=== PATIENT | female | born 1990 | race Caucasian/White ===

== ENCOUNTER 2018-06-10 20:28 | Emergency (ER) | payer MEDICAID, OTHER ==
[2018-06-10 20:47] VITALS: BP 154/99
--- NOTE | 2018-06-10 21:11 | EDM.PDOC ---
ED HPI GENERAL MEDICAL PROBLEM - General Chief Complaint: Lower Extremity Injury/Pain Stated Complaint: LEG PAIN Time Seen by Provider: 06/10/18 20:31 Source of Information: Reports: Patient History Limitations: Reports: No Limitations - History of Present Illness INITIAL COMMENTS - FREE TEXT/NARRATIVE: There is a 27-year-old female. She states that she had an MRI at [facility] that showed a torn ACL as well as a meniscus. She doesn't know whether it's a complete tear of the ACL or which meniscus. She sees Dr. Chapa for this and is supposed to have an appointment on June 20 for him to review the MRI with her. This evening when she got out of bed to go to work her left knee collapsed and she fell to the floor and now she's having increasing pain of the left knee. She comes to the ER for evaluation. She denies any other acute trauma with her fall. left knee Pain Score (Numeric/FACES): 3 - Related Data Allergies Allergy/AdvReac Type Severity Reaction Status Date / Time adhesive Allergy Rash Verified 06/10/18 20:47 ketorolac [From Toradol] Allergy Itching Verified 06/10/18 20:47 glitter Allergy Hives Uncoded 06/10/18 20:47 Home Meds: Home Meds Naproxen [Naprosyn] 500 mg PO Q8H PRN 01/25/17 [History] methylPREDNISolone [Medrol] 0 mg PO ASDIRECTED 06/10/18 [History] Past Medical History - Past Health History Medical/Surgical History: Denies Medical/Surgical History HEENT History: Reports: Impaired Vision, Other (See Below) Other HEENT History: frequent strep throat Cardiovascular History: Reports: None Respiratory History: Reports: Bronchitis, Recurrent, Intubation, Previous, Pneumonia, Recurrent Gastrointestinal History: Reports: GERD, Other (See Below) Other Gastrointestinal History: ENLARGED SPLEEN Genitourinary History: Reports: Other (See Below) 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 Genitourinary History: 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: Musculoskeletal History: Reports: Fracture Neurological History: Reports: Other (See Below) Other Neuro History: slipped disc to lumbar region Psychiatric History: Reports: None Endocrine/Metabolic History: Reports: Diabetes, Gestational, Obesity/BMI 30+ Hematologic History: Reports: Other (See Below) Other Hematologic History: toxic shock syndrome Immunologic History: Reports: None Oncologic (Cancer) History: Reports: None Dermatologic History: Reports: Other (See Below) Other Dermatologic History: HIDRANITIS SUPPERTIVA - Infectious Disease History Infectious Disease History: Reports: Chicken Pox - Past Surgical History Respiratory Surgical History: Reports: Tracheostomy Female Surgical History: Reports: None Social & Family History - Family History Family Medical History: Noncontributory - Tobacco Use Smoking Status *Q: Current Every Day Smoker Years of Tobacco use: 7 Packs/Tins Daily: 0.5 - Caffeine Use Caffeine Use: Reports: Coffee, Energy Drinks, Soda, Tea - Recreational Drug Use Recreational Drug Use: No - Sexual History Sexual History: Reports: Sexually Active - Living Situation & Occupation Living situation: Reports: Single, Other Occupation: Employed Review of Systems - Review of Systems Review Of Systems: See Below Constitutional: Denies: Chills, Fever Eyes: Reports: No Symptoms Ears: Reports: No Symptoms Nose: Reports: No Symptoms Mouth/Throat: Reports: No Symptoms Respiratory: Reports: No Symptoms Cardiovascular: Reports: No Symptoms GI/Abdominal: Reports: No Symptoms Genitourinary: Reports: No Symptoms Musculoskeletal: Reports: Joint Pain, Other (As per history of present illness) Skin: Reports: No Symptoms Neurological: Reports: No Symptoms Psychiatric: Reports: No Symptoms ED EXAM, GENERAL - Physical Exam Exam: See Below Exam Limited By: No Limitations General Appearance: Alert, WD/WN, Mild Distress Eye Exam: Bilateral Eye: Normal Inspection Ears: Normal External Exam Nose: Normal Inspection Throat/Mouth: Normal Inspection, Normal Lips, Normal Voice, No Airway Compromise Head: Normocephalic Neck: Supple Respiratory/Chest: No Respiratory Distress GI/Abdominal: Other (She denies any abdominal tenderness) Back Exam: Normal Inspection, Full Range of Motion Extremities: Normal Inspection, Other (Left knee she has a difficult time getting it to 90 flexion, with it at 90 she does not have a positive anterior drawer sign or posterior drawer sign. Collateral ligaments do not appear to be tender but she is tender on both medial and lateral joint lines slight cannot determine which meniscus might be involved. She has no effusion noted at this time. There is no other lower extremity trauma on the left and she denies any ankle pain foot pain or left hip pain.) Neurological: Alert, Oriented Psychiatric: Normal Affect, Normal Mood Skin Exam: Warm, Dry Course - Vital Signs Last Recorded V/S: Last Vital Signs Temp 97.7 F 06/10/18 20:44 Pulse 87 06/10/18 20:44 Resp 18 06/10/18 20:44 BP 154/99 H 06/10/18 20:44 Pulse Ox 98 06/10/18 20:44 - Orders/Labs/Meds Orders: Active Orders 24 hr Category Date Time Status Communication Order [RC] STAT Care 06/10/18 21:04 Ordered Departure - Departure Time of Disposition: 21:08 Disposition: Home, Self-Care 01 Condition: Good Clinical Impression: Left anterior cruciate ligament tear Qualifiers: Encounter type: initial encounter Qualified Code(s): S83.512A - Sprain of anterior cruciate ligament of left knee, initial encounter Tear of meniscus of left knee Qualifiers: Tear current or old: current Encounter type: initial encounter Meniscus of knee : unspecified Meniscus tear of knee type: other type Qualified Code(s): S83.204A - Other tear of unspecified meniscus, current injury, left knee, initial encounter - Discharge Information *PRESCRIPTION DRUG MONITORING PROGRAM REVIEWED*: Not Applicable *COPY OF PRESCRIPTION DRUG MONITORING REPORT IN PATIENT [place]: Not Applicable Referrals: Dana Keenan NP [Primary Care Provider] - Ede Chapa MD [Physician] - Forms: ED Department Discharge, ED Return to Work/School Form Additional Instructions: Use the crutches until you see Dr. Chapa for evaluation, I will give you off work through the first part of the week so you can call his office to see him sooner so he can evaluate the MRI and determine what needs to be done to your left knee, use ice on and off for the next 48 hours and then begin to use ice and heat alternating but finish with ice, take Aleve or ibuprofen as needed for the soreness and pain, keep it elevated as much as possible, return to the ER if needed - My Orders Last 24 Hours: My Active Orders 06/10/18 21:04 Communication Order [RC] STAT - Assessment/Plan Last 24 Hours: My Active Orders 06/10/18 21:04 Communication Order [RC] STAT
== END 2018-06-10 21:35 | disposition home or self-care (01) ==
LOC: JD.ED 20:28
DX: S83.204A Other tear of unspecified meniscus, current injury, left knee, initial encounter (principal); F17.210 Nicotine dependence, cigarettes, uncomplicated; Z91.09 Other allergy status, other than to drugs and biological substances; Z88.6 Allergy status to analgesic agent; E66.9 Obesity, unspecified; W19.XXXA Unspecified fall, initial encounter
CPT/HCPCS: 99283

== ENCOUNTER 2018-07-05 14:07 | Emergency (ER) | payer MEDICAID ==
[2018-07-05 15:35] VITALS: BP 128/87
[2018-07-05] MEDS ORDERED: LORazepam 2 MG/ML SDV IM ONE (15:59)
--- NOTE | 2018-07-05 15:59 | EDM.PDOCBH ---
ED HPI GENERAL MEDICAL PROBLEM - General Chief Complaint: Behavioral/Psych Stated Complaint: EMOTIONAL MELTDOWN, PANIC ATTACK, MENTAL EVAL Time Seen by Provider: 07/05/18 15:28 Source of Information: Reports: Patient History Limitations: Reports: No Limitations - History of Present Illness INITIAL COMMENTS - FREE TEXT/NARRATIVE: 27-year-old female presents for mental health evaluation. Patient reports she's been having issues with anxiety regarding family issues. She also reports that she has an emotional support dog who ran away today. She is struggling with anxiety today. She reports she has a diagnosis of ADD, ADHD, bipolar disorder, PTSD and insomnia. She's been on multiple medications in the past but does not recall what these are. She's been off her medications at least for the last 3-4 months. She states that she got her emotional support dog several months when she felt that this would help her and she could go off her medications. She does report that things are going better and she feels that that is helping her but she feels that she does need to be back on her medications. She reports the bipolar causes problems with depression and anger and she feels that her anger issues are becoming worse. She denies any suicidal ideation or plan. Denies any homicidal ideation or plan. At this time she is very upset as her dog has just ran away from her today. Patient has seen counselors in the past. She states that she was last managed by family medicine and asked to see a psychiatrist but was never referred to one. She does not recall the medication she has been on most recently. States that she was in [place] and we were able to get most recent medications from pharmacy there. Previously she was on Abilify 15 mg, Geodon 100 mg of Atarax 50 mg when necessary and trazodone 50 mg when necessary. She is interested in restarting most these medications. Patient reports that her anxiety and anger mostly been due to issues of losing her service dog and family drama. - Related Data Allergies Allergy/AdvReac Type Severity Reaction Status Date / Time adhesive Allergy Rash Verified 06/10/18 20:47 ketorolac [From Toradol] Allergy Itching Verified 06/10/18 20:47 glitter Allergy Hives Uncoded 06/10/18 20:47 Home Meds: Home Meds ARIPiprazole [Abilify] 15 mg PO DAILY 07/05/18 [History] ARIPiprazole [Abilify] 15 mg PO DAILY #30 tablet 07/05/18 [Rx] Albuterol [Ventolin HFA] 1 puff .XX ASDIRECTED PRN 07/05/18 [History] Ziprasidone HCl 100 mg PO DAILY 07/05/18 [History] hydrOXYzine HCl [Atarax] 50 mg PO BEDTIME PRN #30 tab 07/05/18 [Rx] hydrOXYzine HCl [Atarax] 50 mg PO DAILY PRN 07/05/18 [History] traZODone HCl [Trazodone HCl] 50 mg PO DAILY PRN 07/05/18 [History] Past Medical History - Past Health History Medical/Surgical History: Denies Medical/Surgical History HEENT History: Reports: Impaired Vision, Other (See Below) Other HEENT History: frequent strep throat Cardiovascular History: Reports: None Respiratory History: Reports: Bronchitis, Recurrent, Intubation, Previous, Pneumonia, Recurrent Gastrointestinal History: Reports: GERD, Other (See Below) Other Gastrointestinal History: ENLARGED SPLEEN Genitourinary History: Reports: Other (See Below) 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: Musculoskeletal History: Reports: Fracture Neurological History: Reports: Other (See Below) Other Neuro History: slipped disc to lumbar region Psychiatric History: Reports: ADD, ADHD, Anxiety, Bipolar, Depression Endocrine/Metabolic History: Reports: Diabetes, Gestational, Obesity/BMI 30+ Hematologic History: Reports: Other (See Below) Other Hematologic History: toxic shock syndrome Immunologic History: Reports: None Oncologic (Cancer) History: Reports: None Dermatologic History: Reports: Other (See Below) Other Dermatologic History: HIDRANITIS SUPPERTIVA - Infectious Disease History Infectious Disease History: Reports: Chicken Pox - Past Surgical History Respiratory Surgical History: Reports: Tracheostomy Female Surgical History: Reports: None Social & Family History - Family History Family Medical History: Noncontributory - Tobacco Use Smoking Status *Q: Current Every Day Smoker Years of Tobacco use: 8 Packs/Tins Daily: 0.5 - Caffeine Use Caffeine Use: Reports: Coffee - Recreational Drug Use Recreational Drug Use: No - Sexual History Sexual History: Reports: Sexually Active - Living Situation & Occupation Living situation: Reports: Single, Other Occupation: Employed ED ROS GENERAL - Review of Systems Review Of Systems: See Below Psychiatric: Reports: Agitation, Anxiety, Depression. Denies: Homicidal Ideation, Suicidal Ideation ED EXAM, BEHAVIORAL HEALTH - Physical Exam Exam: See Below Exam Limited By: No Limitations General Appearance: Alert, WD/WN, No Apparent Distress, Anxious, Obese Respiratory/Chest: No Respiratory Distress Neurological: Alert, Normal Mood/Affect, Normal Cognition Psychiatric: Alert, Normal Affect, Normal Cognition, Normal Mood, Oriented, Tearful. No: Non-Communicative, Poor Eye Contact, Uncooperative, Homicidal Thoughts, Suicidal Plan, Suicidal Thoughts, Threatening Behavior Skin Exam: Warm, Dry, Normal color COURSE, BEHAVIORAL HEALTH COMP - Course Vital Signs: Last Vital Signs Temp 97.8 F 07/05/18 15:31 Pulse 101 H 07/05/18 15:31 Resp 18 07/05/18 15:31 BP 128/87 07/05/18 15:31 Pulse Ox 95 07/05/18 15:31 Orders, Labs, Meds: Medications Discontinued Medications Generic Name Dose Route Start Last Admin Trade Name Freq PRN Reason Stop Dose Admin Lorazepam 1 mg 07/05/18 15:59 07/05/18 16:09 Ativan IM 07/05/18 16:00 1 mg ONETIME ONE Administration Re-Assessment/Re-Exam: 17:05 Patient is much more calm at this point. We'll restart her Abilify and her Atarax. Recommend she see psychiatry for further management of symptoms. Information given. Patient is not acutely suicidal or homicidal. She is not manic. I do not feel that there is any need for her to go to [place] for inpatient psychiatric care and I feel that we can manage her as an outpatient. As stated we will start restart her Abilify 15 mg and Atarax 50 mg as needed for insomnia. Discharge instructions as documented. Departure - Departure Time of Disposition: 17:07 Disposition: Home, Self-Care 01 Condition: Fair Clinical Impression: Anxiety, Bipolar affective, PTSD (post-traumatic stress disorder), Insomnia - Discharge Information *PRESCRIPTION DRUG MONITORING PROGRAM REVIEWED*: No *COPY OF PRESCRIPTION DRUG MONITORING REPORT IN PATIENT [place]: No Prescriptions: ARIPiprazole [Abilify] 15 mg PO DAILY #30 tablet hydrOXYzine HCl [Atarax] 50 mg PO BEDTIME PRN #30 tab PRN Reason: Insomnia Instructions: Living With Bipolar Disorder, Panic Attack, [id number] Referrals: PCP,Unknown [Ordering Only Provider] - Forms: ED Department Discharge Additional Instructions: Recommend following up with a psychiatrist. A list of psychiatry has been provided for you. Recommend Dr. paredes at [facility] or [facility]. Dr. Soliman is also been about the [facility]. Call [phone] schedule with him. Take the Abilify as prescribed. 1 tab daily. Take the hydroxyzine 50 mg by mouth 30-60 minutes prior to sleep as needed for insomnia. make sure you are drinking plenty of fluids. Follow-up with psychiatry as soon as you able to. Please return to the ER if your symptoms change or worsen.
== END 2018-07-05 17:24 | disposition home or self-care (01) ==
LOC: JD.ED 14:07
DX: F31.9 Bipolar disorder, unspecified (principal); F41.9 Anxiety disorder, unspecified; F43.10 Post-traumatic stress disorder, unspecified; G47.00 Insomnia, unspecified; E66.9 Obesity, unspecified; F17.210 Nicotine dependence, cigarettes, uncomplicated; Z91.048 Other nonmedicinal substance allergy status; Z79.899 Other long term (current) drug therapy
CPT/HCPCS: 96372; 99284; J2060